=== PATIENT | male | born 1985 ===

== ENCOUNTER 2020-04-19 17:22 | Inpatient (IN) ==
[2020-04-19] MEDS ORDERED: Metoprolol Tartrate 5 mg VIAL 5 ml VIAL (1 mg/ml) IV ONE (17:59)
[2020-04-19 18:15] LABS: Activated Partial Thrombo Time 42.7 seconds (26.0-38.0); INR 1.05 (0.82-1.09)
[2020-04-19 18:20] LABS: ALT 57 U/L (7-52); AST 31 U/L (13-39); Albumin 4.3 g/dL (3.2-5.2); Albumin/Globulin Ratio 1.6 (1-3); Alkaline Phosphatase 89 U/L (34-104); Anion Gap 7 mmol/L (2-11); Blood Urea Nitrogen 14 mg/dL (6-24); CO2 Carbon Dioxide 24 mmol/L (22-32); Calcium 9.2 mg/dL (8.6-10.3); Chloride 104 mmol/L (101-111); EGFR African American 154.4 (>60); EGFR Non-African American 127.6 (>60); Globulin 2.7 g/dL (2-4); Glucose 128 mg/dL (70-100); Potassium 3.8 mmol/L (3.5-5.0); Sodium 135 mmol/L (135-145)
[2020-04-19 18:26] LABS: Troponin I 0.29 ng/mL (<0.03)
[2020-04-19] MEDS ORDERED: Heparin DRIP 25,000 UNITS BAG 25,000 UNITS/500 ML BAG IV SCH (18:45)
[2020-04-19 19:02] LABS: ABS Monocytes 0.7 10^3/ul (0-0.8); ABS Neutrophils 7.1 10^3/ul (1.5-7.7); Eosinophil % 0.5 %; Hematocrit 42 % (42-52); Hemoglobin 14.5 g/dL (14.0-18.0); Lymphocyte % 20.3 %; Mean Corpuscular HGB Conc 35 g/dL (31-36); Mean Corpuscular Hemoglobin 29 pg (27-31); Mean Corpuscular Volume 83 fL (80-94); Mean Platelet Volume 9.2 fL (7.4-10.4); Nucleated Red Blood Cells % 0.1; Platelet Count 218 10^3/uL (150-450); Red Blood Count 5.06 10^6 /uL (4.18-5.48); Red Cell Distribution Width 14 % (10-15); White Blood Count 9.8 10^3/uL (3.5-10.8)
[2020-04-19 21:07] LABS: TSH Ultra Thyroid Stim Horm 1.86 mcIU/mL (0.34-5.60)
[2020-04-19] MEDS ORDERED: Iohexol 350 (CONTRAST) 500 ML MDV IV ONE (21:18)
[2020-04-19] MEDS ORDERED: hydrALAZINE 20 mg/ml 1 ML Vial IV IV SLOW PU ONE (23:36)
[2020-04-20] MEDS: Heparin 5000 UNITS/ML 1 mL VIAL IV SCH ×2 (00:56→09:16)
[2020-04-20 02:20] LABS: Troponin I 0.31 ng/mL (<0.03)
[2020-04-20] MEDS ORDERED: Nitro 2% OINT (Nitroglycerin) 1 INCH/PAK TOPICAL ONE (04:31)
[2020-04-20 05:27] LABS: Troponin I 0.34 ng/mL (<0.03)
[2020-04-20 07:03] LABS: ABS Basophils 0.1 10^3/ul (0-0.2); ABS Eosinophils 0.2 10^3/ul (0-0.6); ABS Lymphocytes 3.4 10^3/ul (1.0-4.8); ABS Monocytes 0.7 10^3/ul (0-0.8); ABS Neutrophils 5.5 10^3/ul (1.5-7.7); Eosinophil % 1.8 %; Hematocrit 39 % (42-52); Hemoglobin 13.3 g/dL (14.0-18.0); Lymphocyte % 34.5 %; Mean Corpuscular HGB Conc 34 g/dL (31-36); Mean Corpuscular Hemoglobin 29 pg (27-31); Mean Corpuscular Volume 83 fL (80-94); Mean Platelet Volume 8.6 fL (7.4-10.4); Platelet Count 192 10^3/uL (150-450); Red Blood Count 4.65 10^6 /uL (4.18-5.48); Red Cell Distribution Width 14 % (10-15); White Blood Count 9.8 10^3/uL (3.5-10.8)
[2020-04-20 07:20] LABS: BUN/Creatinine Ratio 21.4 (8-20); Calcium 8.3 mg/dL (8.6-10.3); EGFR African American 154.4 (>60); EGFR Non-African American 127.6 (>60); HDL Cholesterol 39.5 mg/dL; Potassium 3.8 mmol/L (3.5-5.0)
[2020-04-20] MEDS ORDERED: diPHENhydraMINE 25 mg TAB PO PRN (08:02)
[2020-04-20] MEDS ORDERED: NS 0.9% 1000 ml BAG 1,000 ML IV SCH (08:15)
[2020-04-20 08:54] LABS: Troponin I 0.34 ng/mL (<0.03)
[2020-04-20] MEDS ORDERED: Influenza VAC *QUAD* 2020-21* 0.5 ML SYRINGE IM ONE (09:00)
[2020-04-20] MEDS ORDERED: Perflutren Lipid Microsphere 3 ML VIAL ONE (09:05)
[2020-04-20] MEDS ORDERED: Nitro Patch/OINT Remove PATCH PATCH OFF SCH (11:00)
[2020-04-20] MEDS ORDERED: VERAPAMIL 2.5 MG/ML 2 ML VIAL ** 5 mg/2 ml ONE (14:34)
[2020-04-20] MEDS ORDERED: Midazolam 5 mg/5 ml VIAL 1 mg/ml 5 ml VIAL (5 mg) ONE (14:34)
[2020-04-20] MEDS ORDERED: Heparin 1,000 UNIT/ML 10 ml (10,000 UNITS) CATHLAB/DIALYSIS ONE (14:34)
[2020-04-20] MEDS ORDERED: fentaNYL 100 mcg/2 ml 50 MCG/ML VIAL ONE (14:34)
[2020-04-20] MEDS ORDERED: Iohexol 350 (CONTRAST) 200 ML MDV IV ONE (14:35)
[2020-04-20] MEDS ORDERED: Heparin 2 UNITS/ML 1000 mls 2,000 ML IV ONE (14:35)
[2020-04-20] MEDS ORDERED: nitroGLYCERIN DRIP 25,000 MCG/250 ML BTL ONE (14:35)
[2020-04-20] MEDS ORDERED: Lidocaine 1% VIAL 10 MG/ML VIAL ONE (14:35)
[2020-04-20] MEDS ORDERED: Metoprolol Tartrate 5 mg VIAL 5 ml VIAL (1 mg/ml) ONE (14:57)
[2020-04-20] MEDS ORDERED: hydrALAZINE 20 mg/ml 1 ML Vial IV IV SLOW PU PRN (18:24)
[2020-04-21 06:22] LABS: BUN/Creatinine Ratio 22.7 (8-20); Calcium 8.5 mg/dL (8.6-10.3); EGFR African American 165.3 (>60); EGFR Non-African American 136.6 (>60); Potassium 3.9 mmol/L (3.5-5.0)
[2020-04-21 12:01] VITALS: BP 177/105
== END 2020-04-21 12:59 | disposition home or self-care (01) | DRG 287 ==
LOC: EDSEX → ED 17:22 → MEDTELE 17:22
PROVIDERS: ADMIT Internal Medicine; ATTEND Internal Medicine